=== PATIENT | male | born 1955 | race Caucasian/White ===

== ENCOUNTER 2019-02-10 02:29 | Inpatient (IN) ==
[2019-02-10] MEDS ORDERED: NS 1,000 ML IV ONE ×3 (02:47→04:22)
--- NOTE | 2019-02-10 02:59 | PROVIDER DOCUMENTATION ---
HPI-General Adult - General Chief Complaint: B/P Problems Stated Complaint: BP problems Time Seen by Provider: 02/10/19 02:57 Source: patient Allergies/Adverse Reactions: Patient Allergies Allergy/AdvReac Type Severity Reaction Status Date / Time codeine Allergy NAUSEA Verified 02/10/19 02:35 tramadol AdvReac NAUSEA Verified 02/10/19 02:58 Home Medications: Home Medication List Medication Instructions Recorded Confirmed Last Taken Type Aspirin 325 mg PO DAILY 02/10/19 02/10/19 Unknown History Diclofenac Na D.r. [Voltaren] 75 mg PO BID PRN PRN 02/10/19 02/10/19 Unknown History Gabapentin 800 mg PO 4XDAY 02/10/19 02/10/19 Unknown History Lisinopril/Hydrochlorothiazide 1.5 tab PO QAM 02/10/19 02/10/19 Unknown History [Lisinopril-Hctz 20-12.5 mg Tab] Metformin HCl 1 tab PO BID 02/10/19 02/10/19 Unknown History Metoprolol Tartrate 25 mg PO BID 02/10/19 02/10/19 Unknown History Potassium Chloride E.r. [Klor-Con] 1 tab PO DAILY 02/10/19 02/10/19 Unknown History Rosuvastatin Calcium 40 mg PO HS 02/10/19 02/10/19 Unknown History Sertraline HCl 100 mg PO DAILY 02/10/19 02/10/19 Unknown History Trazodone [Desyrel] 100 mg PO HS 02/10/19 02/10/19 Unknown History - History of Present Illness -Gen Adult Nature of Presenting Problems: PER PATIENT, BLOOD PRESSURE HAS BEEN LOW BECAUSE HIS LISINOPRIL DOSAGE WENT UP ABOUT 1 MONTH AGO. RIGHT NOW, PATIENT COMPLAINS OF HEADACHE, DIZZINESS, AND ALSO HAD LOSS OF BALANCE AND NEAR SYNCOPE DUE TO LOW BLOOD PRESSURE. PATIENT ALSO ENDORSE SHARP LEFT CHEST PAIN AT LATERAL RIBS. DENIES FEVER, CHILL, NIGHT SWEATS, BLURRY VISION, DYSPNEA, ABDOMINAL DISCOMFORT, NAUSEA, VOMITING, DIARRHEA, CONSTIPATION. Location of Pain/Injury: reports: head Review of Systems - Adult - REVIEW OF SYSTEMS - ADULT ROS:: unobtainable per condition Constitutional: denies: chills, fever, fatique, night sweats, weight loss Eyes: denies: discharge, blurred vision Ears, Nose, Mouth & Throat: denies: ear pain, throat pain Cardiovascular: reports: chest pain (LEFT LATERAL RIB), syncope (NEAR SYNCOPE). denies: edema, orthopnea, palpitations Respiratory: reports: no symptoms reported Gastrointestinal: reports: no symptoms reported Genitourinary: reports: no symptoms reported Musculoskeletal: reports: no symptoms reported Integumentary: reports: no symptoms reported Neurological: reports: dizziness/vertigo, headache/migraines, loss of balance, syncope (NEAR SYNCOPE). denies: ataxia Psychiatric: reports: no symptoms reported Endocrine: reports: no symptoms reported Hematologic/Lymphatic: reports: no symptoms reported Allergic/Immunologic: reports: no symptoms reported Past History - Adult - PAST MEDICAL HISTORY-ADULT Review of Records: reports: Old Records Reviewed Major Childhood Illnesses: reports: denies history Cardiovascular: reports: CAD, [place] Respiratory: reports: denies history Gastrointestinal: reports: denies history Obstetrical/Gynecological: reports: denies history Genitourinary: reports: denies history Musculoskeletal: reports: denies history Neurological: reports: denies history Psychiatric: reports: anxiety Endocrine/Immune: reports: denies history Other Conditions: reports: denies history - PRIOR SURGERIES/PROCEDURES Surgical/Procedure History: reports: cardiac stent - PRIOR HOSPITALIZATIONS Prior Hospitalizations: reports: none - IMMUNIZATION STATUS Childhood Immunizations: See Nurse Assessment Flu Vaccine: See Nurse Assessment - FAMILY HISTORY Family History: reviewed, not pertinent Physical Exam-General - PHYSICAL EXAM-ADULT Initial Vital Signs Reviewed: Yes - CONSTITUTIONAL General Appearance: appears well, alert, no apparent distress - EYES Eyes: PERRL/EOMI - HEAD, EARS, NOSE, MOUTH & THROAT HENMT: normocephalic/atraumatic, moist mucous membranes - NECK Neck: non-tender, full range of motion, supple - RESPIRATORY Respiratory: chest non-tender, lungs clear, normal breath sounds, no pleuratic chest pain, no respiratory distress, no accessory muscle use - CARDIOVASCULAR Cardiovascular: normal peripheral pulses, regular rate, rhythm, no edema, no gallop, no JVD, no murmur - GASTROINTESTINAL (ABDOMEN) Abdominal Exam: normal bowel sounds, non tender, soft, no organomegaly, no pulsatile mass - MUSCULOSKELETAL Back Exam: normal inspection, no CVA tenderness, no vertebral tenderness, CVA tenderness Extremity: normal range of motion, non-tender, normal gait, normal inspection, no pedal edema, no calf tenderness - SKIN Integumentary: normal color, normal turgor, warm/dry - NEUROLOGIC Neurologic: grossly normal - PSYCHIATRIC Psych/Mental Status: normal mood/affect, normal thought content, normal thought process, oriented x 3 Progress - PLAN OF CARE/RESULTS Progress/Plan/Lab Results: Vital Signs - 8 hr 02/10/19 02:31 Temperature 97.5 F L Pulse Rate 70 Respiratory Rate 20 Blood Pressure 76/50 O2 Sat by Pulse Oximetry 95 Orders Category Date Time Status Nursing- Obtain EKG ONCE Care 02/10/19 02:[address] HEAD W/O CONTRAST [CT] Stat Exams 02/10/19 02:51 Ordered BASIC METABOLIC PANEL [CHEM] Stat Lab 02/10/19 02:45 Received CBC WITH DIFF [HEME] Stat Lab 02/10/19 02:45 Received CK PROFILE [SP CHEM] Stat Lab 02/10/19 02:56 Uncollected MAGNESIUM [CHEM] Stat Lab 02/10/19 02:51 Ordered TROPONIN T Stat Lab 02/10/19 02:56 Uncollected URINALYSIS [URINALYSIS] Stat Lab 02/10/19 02:51 Uncollected 0.9% Sodium Chloride Inj [Ns] 1,000 ml Med 02/10/19 02:47 Active IV 999 mls/hr EKG [EKG] Stat Ther 02/10/19 02:51 Ordered EKG [EKG] Stat Ther 02/10/19 02:56 Ordered Signed out to me at 0400 to follow up on imaging reports and determine dispo. He remained with normal BP and clear cognition. His CT scans are WNl. His lactic acid is WNL. The cause of his labile BP and multiple recent syncopal episodes is not clear. He was was admitted to the hospitalist service, Dr Davison, for further eval and tx. Result Diagrams: 02/10/19 02:45 02/10/19 02:45 - CHANGE OF SHIFT REPORT (ED Provider) 1 Report Given and Care Transferred to:: Dr. Steel Time of Transfer: 04:34 Items Pending: Labs, CT/MRI Results, Physician Consult/Arrival, Other (continue patient care and managment.) Departure - Departure Date of Disposition Decision: 02/10/19 Time of Disposition Decision: 06:30 DIAGNOSIS: Syncope and collapse Hypotension Qualifiers: Hypotension type: unspecified hypotension type Qualified Code(s): I95.9 - Hy potension, unspecified UTI (urinary tract infection) Qualifiers: Urinary tract infection type: site unspecified Hematuria presence: without hematuria Qualified Code(s): N39.0 - Urinary tract infection, site not specified Disposition: ADMITTED INPATIENT 09 Certified Medical Emergency: Emergent Condition: Fair Referrals and Follow-Ups: None,PCP [Primary Care Provider] - - Critical Care Note This patient required my direct & personal management of CC.: No Attestation - Physician/ KARLENE Attestation The physician spent face to face time with patient:: Yes Advanced Practice Provider documentation review:: Supervising physician onsite and consulted in the evaluation and care of this patient. The physician did have a face to face encounter with the patient.
--- NOTE | 2019-02-10 03:00 | EKG Report ---
Test Performed on : 02/10/2019 02:48:19 AM Test Reason : CP Blood Pressure : / mmHG Vent. Rate : 064 BPM Atrial Rate : 064 BPM P-R Int : 152 ms QRS Dur : 100 ms QT Int : 436 ms P-R-T Axes : 054 084 036 degrees QTc Int : 449 ms Normal sinus rhythm. with sinus arrhythmia. Normal ECG When compared with ECG of 28-NOV-2013 14:01, No significant change was found Unconfirmed Result
[2019-02-10] MEDS ORDERED: NS 1,000 ML ONE (03:19)
[2019-02-10] MEDS ORDERED: GLUCAGON IV ONE ×2 (03:25→03:36)
[2019-02-10 03:34] LABS: CALCIUM 9.9 mg/dL (8.8-10.2); CREATININE 1.8 mg/dL (0.7-1.2); MAGNESIUM 2.1 mg/dL (1.5-2.7); POTASSIUM 4.2 mmol/L (3.5-5.1)
[2019-02-10 03:37] LABS: BASO# 0.04 X1000 (0.0-0.2); BASO% 0.4 % (0.0-0.8); EOS# 0.18 X1000 (0.0-0.7); EOS% 1.8 % (0.0-10.0); HEMATOCRIT 42.3 % (42.0-52.0); HEMOGLOBIN 13.9 g/dL (14.0-18.0); IMM GRAN# 0.03 X1000 (0.0-0.04); IMM GRAN% 0.3 % (0.0-0.5); LYMPH# 3.25 X1000 (1.2-3.4); MCH 30.2 PG (27-31); MCHC 32.9 g/dL (33-37); MONO# 1.27 X1000 (0.11-0.59); MONO% 12.9 % (1.7-9.3); MPV 9.2 FL (7.4-10.4); NEUT# 5.07 X1000 (1.4-6.5); NEUT% 51.6 % (42.2-75.2); PLT 313 X1000 (130-400); RDW 14.2 % (11.5-14.5); WBC 9.84 X1000 (4.8-10.8)
[2019-02-10 05:50] LABS: URINE SOURCE CLEAN CATCH
[2019-02-10 05:55] LABS: BILIRUBIN URINE NEGATIVE (NEGATIVE); BLOOD URINE NEGATIVE (NEGATIVE); COLOR YELLOW; GLUCOSE URINE NEGATIVE (NEGATIVE); KETONE URINE NEGATIVE (NEGATIVE); LEUKOCYTES URINE MODERATE (NEGATIVE); NITRITE URINE NEGATIVE (NEGATIVE); PROTEIN URINE NEGATIVE (NEGATIVE); SP GRAVITY URINE 1.012; TURBIDITY URINE CLEAR (CLEAR); UROBILINOGEN URINE NORMAL (NORMAL)
[2019-02-10 05:57] LABS: UR EPITHELIAL CELLS <10 /HPF (<10); URINE BACTERIA 2+ /HPF; URINE RBC <10 /HPF (<10)
[2019-02-10] MEDS ORDERED: KEFLEX PO ONE (06:45)
--- NOTE | 2019-02-10 07:32 | Diag Imaging Result Doc PS360 ---
EXAM: CT HEAD W/O CONTRAST - 02/10/2019 HISTORY: SYNCOPE + MULTIPLE FALL TECHNIQUE: CT head without contrast COMPARISON: None. FINDINGS: There is no evidence of intracranial hemorrhage, mass effect, midline shift, or hydrocephalus. There are mild chronic appearing microvascular ischemic changes with chronic appearing lacunar infarcts. There is no indication of recent infarct, although acute infarcts may not be visible. There is no evidence of skull fracture. There is possible old fracture deformity of the visualized left orbital floor noted. IMPRESSION: No visible acute intracranial abnormality. No evidence of intracranial injury. The regional sales director radiologist provided preliminary results at 6:12 AM on 02/10/2019. This exam was performed using automated exposure control, adjustment of mA or kV according to patient size, and/or use of iterative reconstruction technique. Electronically signed by Luis Spence 02/10/2019 7:30 AM
[2019-02-10] MEDS ORDERED: VOLTAREN PO PRN (08:38)
--- NOTE | 2019-02-10 08:47 | Diag Imaging Result Doc PS360 ---
EXAM: CT THORAX/ABD/PELVIS W/O CON - 02/10/2019 HISTORY: S/P FALL TECHNIQUE: CT thorax and abdomen/pelvis without contrast. No contrast administered per request of the referring provider. COMPARISON: None. FINDINGS: CT thorax: There is mild limitation of detail without administered intravenous contrast. There is subsegmental atelectasis at the right middle lobe. There are small calcified granuloma from old granulomatous disease at the right upper lobe. There is no consolidation, pleural effusion, or pneumothorax identified. There is no mediastinal hematoma or pericardial fluid identified. There is mild mediastinal adenopathy. There is no discrete pulmonary mass lesion identified. The visualized bony structures appear grossly. CT abdomen/pelvis: There is some limitation of detail without administered contrast. There are no substantial abnormalities of the liver, spleen, or pancreas identified. There is nonspecific slight fullness of the bilateral adrenal glands. There are no calcified gallstones or pericholecystic inflammation identified. There are nonobstructing stones in bilateral kidneys. There is no obstructing renal stone or hydronephrosis identified. There are nonspecific small retroperitoneal lymph nodes. There are no substantially enlarged lymph nodes identified. There is no evidence of bowel obstruction. There is colonic diverticulosis which is most extensive along the distal descending and proximal sigmoid colon. There is no discrete diverticulitis identified. There is no free air or abscess identified. There is no retroperitoneal hematoma, peritoneal hematoma, or free fluid identified. There is a chronic appearing L5 pars articularis defect on the left. There are apparent changes of avascular necrosis at the right femoral head. The visualized bony structures appear grossly clear of acute changes. IMPRESSION: CT thorax: Mild subsegmental atelectasis at right upper lobe. Mild mediastinal adenopathy, no discrete etiology for which is apparent. No evidence of injury to the thorax. CT abdomen/pelvis: Nonobstructing stones in bilateral kidneys. Uncomplicated colonic diverticulosis. No evidence of injury to the abdomen/pelvis. The on-call radiologist provided preliminary results at 6:18 AM on 02/10/2019. This exam was performed using automated exposure control, adjustment of mA or kV according to patient size, and/or use of iterative reconstruction technique. Electronically signed by Luis Spence 02/10/2019 8:42 AM
[2019-02-10] MEDS ORDERED: TYLENOL PO PRN (08:48)
[2019-02-10] MEDS ORDERED: ZOFRAN IV PRN (08:48)
--- NOTE | 2019-02-10 08:49 | Diag Imaging Result Doc PS360 ---
EXAM: CT ADDITNL MPLANAR/3D RECONST - 02/10/2019 HISTORY: FALL TECHNIQUE: Multiplanar reconstructed images of the bony left hip and pelvis. Images are reconstructed from the CT abdomen/pelvis raw data. COMPARISON: None. FINDINGS: There is no fracture identified. There is no hip dislocation seen. There is lobulated lucency with sclerotic margins at the subarticular right femoral head which is suspicious for avascular necrosis. There are apparent mild degenerative changes of bilateral hips. There is a left L5 pars interarticularis defect noted which is likely long-standing. There is some L5-S1 degenerative disc disease. IMPRESSION: No evidence of fracture or dislocation. 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 The on-call radiologist provided preliminary results at 6:12 AM on 02/10/2019. This exam was performed using automated exposure control, adjustment of mA or kV according to patient size, and/or use of iterative reconstruction technique. Electronically signed by Luis Spence 02/10/2019 8:47 AM
[2019-02-10] MEDS: NS 1,000 ML IV SCH ×2 (10:41→18:47)
[2019-02-10] MEDS: NEURONTIN PO SCH ×4 (10:42→20:06)
[2019-02-10] MEDS: ZOLOFT PO SCH (10:42)
[2019-02-10] MEDS: GLUCOPHAGE PO SCH ×2 (10:42→20:06)
--- NOTE | 2019-02-10 11:34 | HISTORY AND PHYSICAL ---
ADDENDUM: Patient seen and examined. He had presented to the ER, tired, fatigued, falling. His blood pressures were 76/40, currently they are 116/68 and he has not had his blood pressure medication. He is awake, alert. We are going to admit him to the hospital, place him on IV fluids, oxygen, check an echocardiogram, and we will follow. cc: Tobin Davison MD
[2019-02-10] MEDS ORDERED: PNEUMOVAX 23 IM ONE (13:00)
[2019-02-10] MEDS: HUMALOG (PARKWAY) SUBQ SCH ×3 (13:17→22:32)
--- NOTE | 2019-02-10 14:24 | ECHO REPORT ---
ORDER DATE: 02/10/2019 INTERPRETING PHYSICIAN: Dr. Kev Johnson. ECHOCARDIOGRAPHIC MEASUREMENTS: 1. Interventricular septum 1.0. 2. Left ventricular posterior wall 1.0. 3. Diastolic diameter 4.7. 4. Left atrium 4.4. 5. Aorta 2.74. SUMMARY OF THE 2-DIMENSIONAL IMAGIN. Technically suboptimal study. 2. Mitral valve leaflets mildly thickened. There was calcification noted on the tip of the mitral valve leaflet. 3. Tricuspid valve was normal. 4. Aortic valve leaflets were trileaflet. 5. Pulmonic valve was normal. 6. There is mild left atrial enlargement. 7. Normal left ventricular cavity size. Estimated ejection fraction of 60%. 8. There is [id number] mitral regurgitation. 9. There is no aortic stenosis. There is mild aortic regurgitation. 10. There is mild tricuspid regurgitation. Peak velocity across the tricuspid valve was 2.5 m/sec. 11. Pulmonary artery systolic pressure of 36 to 38 mmHg. 12. There is no pericardial effusion. 13. There is left atrial enlargement. cc: Kev Johnson MD
--- NOTE | 2019-02-10 14:29 | Vascular Study Report ---
EXAM: Carotid Ultrasound - 02/10/2019 HISTORY: syncope TECHNIQUE: Carotid flow studies COMPARISON: None. FINDINGS: There are some atherosclerotic plaquing at the distal common carotid, carotid bulb, internal carotid on the right. Maximum systolic velocity at the right internal carotid is 86 cm/s, and maximum diastolic velocity is 39 cm/s. The right internal to common carotid systolic velocity ratio is 1.0. The flow velocities and ratio are consistent with 0-39% stenosis at the right internal carotid. The right vertebral demonstrates antegrade flow. There are some atherosclerotic plaquing at the distal common carotid, carotid bulb, internal carotid on the left. Maximal systolic velocity at the left internal carotid is 91 cm/s, and maximum diastolic velocity is resected. The left internal to common carotid systolic velocity ratio is 1.1. The flow velocities and ratio are consistent with 0-39% stenosis at the left internal carotid. The left vertebral demonstrates antegrade flow. IMPRESSION: Atherosclerotic plaquing in bilateral carotid systems. 0-39% stenosis on the right. 0-39% stenosis on the left. Electronically signed by Luis Spence 02/10/2019 2:27 PM
--- NOTE | 2019-02-10 15:22 | HISTORY AND PHYSICAL ---
PRIMARY CARE PROVIDER: Dr. Mellissa Blanca. MECHANICAL SYSTEMS CONTROL ENGINEER: Dr. Moreira. CHIEF COMPLAINT: Falling, passing out 2 to 3 months, high blood pressure. HISTORY OF PRESENT ILLNESS: Mr. Ricketts is a 64-year-old, male who carries a past medical history of coronary artery disease, status post stent placement almost 20 years ago, hypertension, diabetes mellitus, neuropathy, and hyperlipidemia, who reported 2 to 3 months ago, he would wake up in the morning and his blood pressure would be in the 200s. His primary care provider increased his lisinopril to a tablet and a half per day. However, in the evenings, this would drop his blood pressure down into the 70s. He would feel "wobbly-headed". He would also feel weak in his legs so he went back down to just one pill per day on his own but he continued to have lower blood pressures in the evenings. He stated he did keep track of his heart rates as well because he is on metoprolol. His heart rate is usually always in the 70s. He reports yesterday that he got up on a chair because the smoke alarm went off. He got there to fan it. He got dizzy. His legs got weak and he fell off the chair, hit the right side of his ribs and after that, his roommate told him that he had 7 syncopal episodes before he would let him call 911. He was brought into the ED. He had a full workup from head to pelvis that did not show any acute findings. However, initially, his blood pressure was 76/50. He was given a 3 L bolus of normal saline and found to have a urinary tract infection, and started on IV antibiotics, as well as an acute kidney injury with a creatinine of 1.8. The patient's blood pressures are now currently 100s/60s. We are holding his home blood pressure medications. We will do a full syncopal workup with echocardiogram and carotids as well as orthostatic. MEDICAL HISTORY: 1. Coronary artery disease, status post myocardial infarction and stenting over about 20 years ago. 2. Hypertension. 3. Diabetes mellitus. 4. Hyperlipidemia. PAST SURGICAL HISTORY: Stent placement. FAMILY HISTORY: MT and stroke in his mother. Grandmother with MT. Heart disease in grandfather. SOCIAL HISTORY: He lives with a roommate. He is . She has one daughter. He stopped working for [employer] years ago to care for his mother, I believe who is now . He has been a 40+ year smoker, less than 1 pack per day. He quit alcohol 15 years ago. No illicit drug use. REVIEW OF SYSTEMS: Completely negative except for those mentioned in the HPI. He denies any headache, fever, chills, cough. He does report shortness of breath but only related to his normal smoking shortness of breath but no chest pain, palpitations. No nausea, vomiting, diarrhea, or constipation. PHYSICAL EXAMINATION: VITAL SIGNS: Temperature is 98.3 degrees, heart rate 63, respirations 16, blood pressure 109/68, O2 is 95% on room air. GENERAL: Mr. Ricketts is a pleasant, 64-year-old, male who is lying in the bed, in no acute distress. HEENT: Atraumatic, normocephalic. PERRL. NECK: Supple. Trachea midline. CARDIOVASCULAR: S1, S2 appreciated. No murmurs, gallops, or rubs noted. RESPIRATORY: Lungs sound clear bilaterally. CHEST: He is tender to palpation to his right lower ribcage. Did not note any bruising. ABDOMEN: Soft, nontender, nondistended. Positive bowel sounds in 4 quadrants. EXTREMITIES: Lower extremity negative for edema. The patient moves all extremities. NEUROLOGIC: No focal deficits noted. DIAGNOSTIC DATA: Head CT, no visible acute intracranial abnormality. No evidence of intracranial injury. Chest, abdomen, and pelvis CT, mild subsegmental atelectasis at the right upper lobe, mild mediastinal adenopathy. No evidence of injury to the thorax, abdomen, and pelvis. Nonobstructing stones in the bilateral kidneys. Uncomplicated colonic diverticulosis. No evidence of injury to the abdomen or pelvis. 3D reconstruction. No evidence of fracture or dislocation. EKG, normal sinus rhythm with a sinus arrhythmia at 64 beats per minute. ASSESSMENT AND PLAN: 1. Syncopal episodes, possibly related to blood pressure medications. However, we will do a cardiac workup with echocardiogram and carotid Dopplers. We will hold his lisinopril and metoprolol. Monitor him on telemetry. We will do orthostatics. Up with assistance only. Frequent neurological checks. 2. Right lower rib pain. Imaging does not show any fractures or broken ribs. I did educate the patient on incentive spirometry, turn, cough, and deep breathing, as well as splinting with a pillow. 3. Hypertension. Again, we are holding any antihypertensives secondary to hypotension. 4. Hypotension. See #2. 5. Diabetes mellitus. We will place him on a diabetic diet. Check a hemoglobin A1c. Continue home medications. Place him on sliding scale and pattern blood sugars. 6. Coronary artery disease. The patient does not complain of any chest pain. 7. Tobacco use and abuse. The patient will need continued education on smoking cessation as well as the means to quit. 8. Hyperlipidemia. 9. Acute kidney injury. Unsure if there is any underlying chronic kidney disease. We will recheck his kidney function in the morning. 10. Urinary tract infection. We will continue with intravenous antibiotics. Await urine culture. 11. Diabetic neuropathy. We will continue his gabapentin. 12. Further recommendations to follow physician evaluation, laboratory data, and diagnostic data. Dictated by LILLY Villa for Tobin Davison MD cc: MD Mellissa Noel MD Luis N. Villanueva, MD MTDD
[2019-02-10] MEDS: DESYREL PO SCH (20:06)
[2019-02-11] MEDS: NS 1,000 ML IV SCH (02:30)
[2019-02-11] MEDS ORDERED: LEVAQUIN 500 MG/D5W 500 MG/100 ML IVPB IV SCH ×2 (06:00→10:45)
[2019-02-11] MEDS: HUMALOG (PARKWAY) SUBQ SCH ×4 (06:04→20:36)
--- NOTE | 2019-02-11 06:14 | EKG Report ---
Test Performed on : 02/11/2019 06:01:56 AM Test Reason : chest pain Blood Pressure : / mmHG Vent. Rate : 064 BPM Atrial Rate : 064 BPM P-R Int : 146 ms QRS Dur : 100 ms QT Int : 432 ms P-R-T Axes : 055 082 036 degrees QTc Int : 445 ms Normal sinus rhythm. with sinus arrhythmia. Normal ECG When compared with ECG of 10-FEB-2019 02:48, (Unconfirmed) No significant change was found Confirmed by Wesley Torres MD ([id number]) on 02/19/2019 7:33:33 AM
[2019-02-11 06:30] LABS: BASO# 0.04 X1000 (0.0-0.2); BASO% 0.6 % (0.0-0.8); EOS# 0.19 X1000 (0.0-0.7); EOS% 2.7 % (0.0-10.0); HEMATOCRIT 39.3 % (42.0-52.0); HEMOGLOBIN 12.6 g/dL (14.0-18.0); IMM GRAN# 0.01 X1000 (0.0-0.04); IMM GRAN% 0.1 % (0.0-0.5); LYMPH# 2.01 X1000 (1.2-3.4); LYMPH% 28.7 % (20.5-51.1); MCH 29.7 PG (27-31); MCHC 32.1 g/dL (33-37); MCV 92.7 FL (81-99); MONO# 0.95 X1000 (0.11-0.59); MONO% 13.6 % (1.7-9.3); MPV 9.5 FL (7.4-10.4); NEUT# 3.81 X1000 (1.4-6.5); NEUT% 54.3 % (42.2-75.2); PLT 269 X1000 (130-400); RBC 4.24 XMIL (4.7-6.1); RDW 14.2 % (11.5-14.5); WBC 7.01 X1000 (4.8-10.8)
[2019-02-11 06:51] LABS: HEMOGLOBIN A1C 6.5 % (4.8-6.0)
[2019-02-11 07:01] LABS: AGAP 11; ALBUMIN 3.8 g/dL (3.5-5.0); ALKALINE PHOSPHATASE 52 U/L (32-122); BUN 11 mg/dL (8-22); CALCIUM 8.9 mg/dL (8.8-10.2); CHLORIDE 108 mmol/L (98-107); COSMO 280; CREATININE 0.8 mg/dL (0.7-1.2); ESTIMATED GFR > 60; GLUCOSE 118 mg/dL (70-104); GOT 12 U/L (10-34); GPT 15 U/L (10-44); MAGNESIUM 1.7 mg/dL (1.5-2.7); POTASSIUM 4.3 mmol/L (3.5-5.1); SODIUM 140 mmol/L (136-145); TCO2 21 mmol/L (25-35); TOTAL PROTEIN 6.2 g/dL (6.3-8.3)
[2019-02-11] MEDS: GLUCOPHAGE PO SCH ×2 (08:02→16:30)
[2019-02-11] MEDS: NEURONTIN PO SCH ×4 (08:02→20:37)
[2019-02-11] MEDS: ZOLOFT PO SCH (08:03)
--- NOTE | 2019-02-11 15:50 | PROGRESS NOTE ---
DATE: 02/11/2019 SUBJECTIVE: Patient notes that he is feeling better. Denies any fevers or chills currently. Notes that he is able to ambulate to the restroom and back. Symptoms have improved. EXAM: Temperature 97.6, pulse 59, respiratory rate 18, BP 128/61.General: Patient is awake, alert. He is pleasant. He is in no distress. HEENT: Normocephalic. Neck: Supple. Cardiovascular: Regular rate. No murmurs. Chest: Clear. Abdomen: Soft, nondistended. Extremities: Moves all extremities. Neurologic: No changes. ASSESSMENT: 1. Hypotension, improved although he has not restarted any of his home blood pressure medications. 2. Syncope, improved. 3. Known coronary artery disease and AR apparently 20 years ago, although he had a chemical stress test per the patient 6 months ago that was negative. 4. Diabetes. PLAN: We are going to continue the patient in the hospital today. Stop his IV fluids, allow to ambulate, and we will see how his blood pressures do. If stable, we can discharge home tomorrow. cc: Tobin Davison MD
--- NOTE | 2019-02-11 16:29 | Diag Imaging Result Doc PS360 ---
EXAM: KUB ABDOMEN HISTORY: pain/? renal stone TECHNIQUE: Two views COMPARISON: None. FINDINGS: No bowel obstruction. No organomegaly. There is an 8 mm calcification overlying the lower pole of the left kidney. No other abnormal calcifications. IMPRESSION: Left renal stone. Electronically signed by Candido Stapleton 02/11/2019 4:26 PM
[2019-02-11] MEDS: DESYREL PO SCH (20:36)
[2019-02-12] MEDS: HUMALOG (PARKWAY) SUBQ SCH (06:09)
[2019-02-12 06:43] LABS: HEMATOCRIT 41.3 % (42.0-52.0); MCH 28.8 PG (27-31); MCHC 31.5 g/dL (33-37); MCV 91.6 FL (81-99); MPV 9.2 FL (7.4-10.4); RBC 4.51 XMIL (4.7-6.1); RDW 13.8 % (11.5-14.5); WBC 8.21 X1000 (4.8-10.8)
[2019-02-12 07:01] LABS: AGAP 12; ALKALINE PHOSPHATASE 56 U/L (32-122); BUN 8 mg/dL (8-22); CALCIUM 9.3 mg/dL (8.8-10.2); CHLORIDE 104 mmol/L (98-107); COSMO 276; CREATININE 0.8 mg/dL (0.7-1.2); ESTIMATED GFR > 60; GLUCOSE 128 mg/dL (70-104); GOT 14 U/L (10-34); GPT 16 U/L (10-44); MAGNESIUM 1.6 mg/dL (1.5-2.7); POTASSIUM 4.4 mmol/L (3.5-5.1); SODIUM 138 mmol/L (136-145); TCO2 21 mmol/L (25-35); TOTAL PROTEIN 6.7 g/dL (6.3-8.3)
--- NOTE | 2019-02-12 07:02 | EKG Report ---
Test Performed on : 02/12/2019 06:35:44 AM Test Reason : 6 beat run of vtach Blood Pressure : / mmHG Vent. Rate : 059 BPM Atrial Rate : 059 BPM P-R Int : 126 ms QRS Dur : 096 ms QT Int : 440 ms P-R-T Axes : 004 083 052 degrees QTc Int : 435 ms Sinus bradycardia. with sinus arrhythmia. Otherwise normal ECG When compared with ECG of 11-FEB-2019 06:01, (Unconfirmed) No significant change was found Confirmed by Wesley Torres MD ([id number]) on 02/19/2019 7:33:20 AM
[2019-02-12] MEDS: GLUCOPHAGE PO SCH (08:17)
[2019-02-12] MEDS: NEURONTIN PO SCH (08:17)
--- NOTE | 2019-02-12 08:21 | Diag Imaging Result Doc PS360 ---
EXAM: US RENAL 2 (RETROPER) COMPLETE HISTORY: htn/renal stone TECHNIQUE: Renal ultrasound COMPARISON: 08/05/2018 FINDINGS: The right kidney measures 12.6 0.4 x 6.0 cm. The left kidney measures 11.6 x 5.4 x 5.1 cm. Normal renal echotexture and cortical thickness. There are small right renal cysts. There is a 9 mm nonobstructing stone in the lower pole of the left kidney. No hydronephrosis. The urinary bladder is not distended. IMPRESSION: Nonobstructing left renal stone. Electronically signed by Candido Stapleton 02/12/2019 8:19 AM
[2019-02-12 08:33] VITALS: BP 165/80
[2019-02-12] MEDS: ZOLOFT PO SCH (08:59)
[2019-02-12] MEDS ORDERED: LEVAQUIN PO SCH (09:00)
--- NOTE | 2019-02-12 09:51 | DISCHARGE SUMMARY ---
ADMISSION DATE: 02/10/2019 DISCHARGE DATE: 02/12/2019 DISCHARGE DIAGNOSES: 1. Iatrogenically-induced hypotension. Patient thinks he may have taken extra blood pressure medication. 2. Known coronary artery disease, status post myocardial infarction 20 years ago with a recent stress test 6 months ago, negative. 3. Hypertension. 4. Diabetes. 5. Hyperlipidemia. CONSULTATIONS: None. PROCEDURES: None. BRIEF HOSPITAL COURSE: The patient is a 64-year-old male, who presented to the hospital with hypotension with blood pressures in the 80s. His blood pressure medications were held over the next 36 hours. The blood pressure has started creeping back up to 150 and 160 systolic. Thankfully, he has had an uneventful hospital course. He has been able to ambulate without any difficulty. DISPOSITION: Patient to be discharged home. TIME SPENT: Greater than 30 minutes was spent in total care. Discussed with patient that he needs to break his blood pressure medication in half, and take half this morning and half tonight. Also discussed with him getting a new blood pressure cuff, as he states his is over 5 years old. He notes several times at home his blood pressures have been over 200s, whereas 160 is the highest we have gotten here without any medication. He will follow up outpatient with Dr. Blanca in 1 week to recheck blood pressure and to adjust medications as needed. Discussed with patient how to increase blood pressure medication if his blood pressure continues to creep up. cc: Tobin Davison MD
== END 2019-02-12 10:00 | disposition home or self-care (01) | DRG 918 ==
LOC: P.ED 02:29 → P.MEDSURG 08:20
PROVIDERS: ATTEND Family Medicine